=== PATIENT | male | born 2000 | race African-American/Black ===

== ENCOUNTER 2022-05-08 00:30 | Emergency (ER) | payer OTHER ==
[~2022-05-08] VITALS: Ht 170.2 cm; Wt 141.1 kg
[2022-05-08] MEDS ORDERED: OXYM30SP26 BOTHNSTRLS (03:21)
[2022-05-08] MEDS ORDERED: OFLO5DRO4 LEFT EAR (03:21)
[2022-05-08 03:32] VITALS: BP 140/88
== END 2022-05-08 03:33 | disposition home or self-care (01) ==
LOC: ER 00:30
DX: H60.502 Unspecified acute noninfective otitis externa, left ear (principal); R09.81 Nasal congestion
CPT/HCPCS: 99283

== ENCOUNTER 2025-04-22 22:53 | Emergency (ER) | payer SELFPAY ==
[~2025-04-22] VITALS: Ht 172.7 cm; Wt 127.0 kg
[~2025-04-22 22:53] MED LIST: OFLO5DRO4 LEFT EAR; OXYM30SP26 BOTHNSTRLS
[2025-04-22 23:13] VITALS: O2SAT 99
[2025-04-23] MEDS ORDERED: KETO15CR2 TP (00:24)
[2025-04-23 00:36] VITALS: BP 177/123; PULSE 87; RESP 16; TEMP 36.7; O2SAT 100
== END 2025-04-23 00:38 | disposition home or self-care (01) ==
LOC: ER 22:53
DX: L21.9 Seborrheic dermatitis, unspecified (principal); L91.0 Hypertrophic scar; I10 Essential (primary) hypertension; Z79.899 Other long term (current) drug therapy
CPT/HCPCS: 99282